=== PATIENT | male | born 1965 | race Caucasian/White ===

== ENCOUNTER 2016-11-01 10:11 | Emergency (ER) | payer OTHER ==
[~2016-11-01] VITALS: Ht 167.6 cm; Wt 98.0 kg
[~2016-11-01 10:11] MED LIST: CITALOPRAM HBR10 MG PO; GLIMEPIRIDE1 MG PO; LISINOPRIL10 MG PO; LORTAB 5-325 M1 EACH PO; METFORMIN HCL850 MG PO; MIRALAX17 GM PO; MOTRIN800 MG PO; PERCOCET 5/31 TABLET PO; VENTOLIN HFA18 GM IH; ZITHROMAX Z-PA250 MG PO
[2016-11-01] MEDS ORDERED: TRAMADOL HCL50 MG PO (12:37)
[2016-11-01] MEDS ORDERED: NAPROSYN500 MG PO (12:37)
[2016-11-01] MEDS ORDERED: CLINDAMYCIN HC300 MG PO (12:37)
[2016-11-01 12:45] VITALS: BP 140/87
== END 2016-11-01 12:47 | disposition home or self-care (01) ==
LOC: EME 10:11
PROC: 0H9BXZZ Drainage of Right Upper Arm Skin, External Approach (ICD-10-PCS; principal; 2016-11-01)
DX: L02.411 Cutaneous abscess of right axilla (principal); F17.200 Nicotine dependence, unspecified, uncomplicated
CPT/HCPCS: 87070; 87075; 87077; 87147; 87186; 87205; 99281; 99284; J3010

== ENCOUNTER 2017-01-14 02:15 | Emergency (ER) | payer OTHER ==
[~2017-01-14] VITALS: Ht 167.6 cm; Wt 92.9 kg
[~2017-01-14 02:15] MED LIST changes: +CLINDAMYCIN HC300 MG PO; +NAPROSYN500 MG PO; +TRAMADOL HCL50 MG PO
[2017-01-14] MEDS ORDERED: KEFLEX500 MG PO (02:58)
[2017-01-14 03:16] VITALS: BP 166/91
== END 2017-01-14 03:17 | disposition home or self-care (01) ==
LOC: EME 02:15
DX: L03.211 Cellulitis of face (principal); E11.9 Type 2 diabetes mellitus without complications; J44.9 Chronic obstructive pulmonary disease, unspecified; I10 Essential (primary) hypertension; Z79.84 Long term (current) use of oral hypoglycemic drugs; F17.200 Nicotine dependence, unspecified, uncomplicated
CPT/HCPCS: 99281; 99283

== ENCOUNTER 2017-01-31 18:26 | Emergency (ER) | payer OTHER ==
[~2017-01-31] VITALS: Ht 167.6 cm; Wt 92.4 kg
[~2017-01-31 18:26] MED LIST changes: +KEFLEX500 MG PO
[2017-01-31] MEDS ORDERED: VIBRAMYCIN100 MG PO (19:29)
[2017-01-31] MEDS ORDERED: MOTRIN800 MG PO (19:29)
[2017-01-31 19:43] VITALS: BP 142/95
== END 2017-01-31 19:43 | disposition home or self-care (01) ==
LOC: EME 18:26
DX: L03.012 Cellulitis of left finger (principal); F17.200 Nicotine dependence, unspecified, uncomplicated
CPT/HCPCS: 99281; 99284